=== PATIENT | female | born 2000 | race Caucasian/White ===

== ENCOUNTER 2019-06-06 00:46 | Emergency (ER) | payer MEDICAID ==
[~2019-06-06] VITALS: Ht 167.6 cm; Wt 70.8 kg
[2019-06-06 00:50] VITALS: Ht 167.6 cm; Wt 70.8 kg
[2019-06-06 01:57] VITALS: BP 138/52
== END 2019-06-06 01:57 | disposition home or self-care (01) ==
LOC: ED 00:46
DX: K08.89 Other specified disorders of teeth and supporting structures (principal); J45.909 Unspecified asthma, uncomplicated
CPT/HCPCS: J1885